=== PATIENT | male | born 1985 | race African-American/Black ===

== ENCOUNTER 2020-07-05 22:58 | Emergency (ER) | payer SELFPAY ==
[~2020-07-05] VITALS: Ht 182.9 cm; Wt 108.9 kg
[2020-07-05] MEDS ORDERED: diphenhdrAMINE HCL 25 MG CAP PO ONE (23:30)
[2020-07-06 03:25] VITALS: BP 128/80
== END 2020-07-06 03:47 | disposition home or self-care (01) ==
LOC: ER 22:58
DX: S02.5XXA Fracture of tooth (traumatic), initial encounter for closed fracture (principal); K04.7 Periapical abscess without sinus; X58.XXXA Exposure to other specified factors, initial encounter; Y93.89 Activity, other specified; Y92.89 Other specified places as the place of occurrence of the external cause; Y99.8 Other external cause status